=== PATIENT | male | born 2005 | race Caucasian/White ===

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

== ENCOUNTER 2023-01-16 17:30 | Outpatient (RCR) | payer OTHER, SELFPAY ==
--- NOTE | 2022-06-27 18:53 | HP.PTEVAL ---
Patient's Visit Information CLAUDE BAIN is a 17 year old M referred to Physical Therapy by MONTSERRAT BAUER with a diagnosis of Spastic Diplegia. Date of Evaluation: 06/27/22 Physical Therapist: Thomas Sweet, PT, ATC - Visit Plan Frequency: 2-3x /Week Duration: 4-6 Weeks Plan: B LE strengthening, balance and proprio, core strengthening, gait training, stair negotiation, nustep, and HEP - Subjective Pt was diagnosed with spastic diplegia approximately 5 years ago. Pt notes he was always off with his walking progression, but notes he never had a Dx until 5 years ago. Pt has been treated on and off over the years with speech, physical and occupational therapy. Pt notes he was last in here before [place] of last year, and notes since he has been off from PT, he has noticed significant regression with his LE tightness. Pt reports he likes to go outside to enjoy activites, but notes he has been sitting a lot at home secondary to weakness and fatigue. Pt has no stairs in the house, but has 3 to enter which pt has difficulty negotiating. Pt notes he has fallen a lot in the past, with the last one occurring a week ago when he fell off of the bed. - Objective Neuro: B LE sensation is WNL to light touch. Gait: Pt is able to ambulate 120 feet with ww AND slow rudy until needing to rest secondary to fatigue. Pt demonstrates a Trendelenburg gait pattern with ambulation indicating core weakness throughout. MMT: B LE's are grossly 4-/5 throughout. Transfers: Pt is I with sit to stand but is unable to transfer onto a mat table without assistance. - Balance/Special Test Scores Lower Extremity Functional Score: 25 - Goals Goal 1:: Increase B LE strength x 1/2 grade to aid with stair negotiation Goal Time Frame: 4-6 Weeks Goal 2:: Increase core stability to aid with improving pt's gait pattern and eliminating the trendelenburg gait pattern Goal Time Frame: 4-6 Weeks Goal 3:: Pt will be able to ambulate greater than 600 feet to aid with community ambulation Goal Time Frame: 4-6 Weeks Goal 4:: I with HEP Goal Time Frame: 4-6 Weeks - Rehabilitation Potential Physical Therapy Diagnosis: Pt has B LE weakness, core weakness, and intolerance for ambulation secondary to spastic diplegia Rehabilitation Potential: Good - Anticipated Interventions Patient/Client Instruction: Educate patient on: Condition, Plan of Care For the Purpose of:: To improve self management Therapeutic Exercise to Include: Strength training, Endurance training, Balance training, Gait and locomotor training, Dynamic Lumbar Stabilization For the Purpose of:: To improve muscle performance and motor function, To increase tolerance to activity/condition/position, To improve performance and independence with ADL's, To improve ability of physical actions for home/community/work/leisure Thank you for the opportunity to evaluate your patient. For Medicare and Medicare HMO plans, please review the plan of care and approve it. It will need to be FAXED BACK to us at [phone] for Medicare purposes. For Medicare only, by signing this I certify the plan of care. Please let me know if there are questions or concerns regarding this plan of care. Physician Signature: Date:
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
--- NOTE | 2023-01-16 18:29 | HP.PTDCSUM ---
Discharge Summary D/C summary: It has been my pleasure to treat CLAUDE BAIN referred by MONTSERRAT BAUER, with the diagnosis of Spastic Diplegia for a total of 29 visit(s). Discharge Date: Please see the following information for a summary of their discharge status. Subjective Subjective: Pt reports he has benefitted from PT at this time. Pt reports his mom is fighting for him to get more PT Pain R quad: Pain Intensity (Out of 10): 0 Overall Improvement % Improvement: 50 Objective Objective/Function: MMT: B LE are grossly 4-/5 throughout Gait: Pt is able to ambulate 140 feet with walker and CGAx1 until needing to rest secondary to fatigue. Pt also performs toe drag with B LE's. Pt is now I with HEP Goals Goal 1:: Increase B LE strength x 1/2 grade to aid with stair negotiation Goal Progress: Goal Met Goal 2:: Increase core stability to aid with improving pt's gait pattern and eliminating the trendelenburg gait pattern Goal Progress: Progressing Goal 3:: Pt will be able to ambulate greater than 600 feet to aid with community ambulation Goal Progress: Progressing Goal 4:: I with HEP Goal Progress: Goal Met Plan Plan: Discharge to HEP D/C Information d/c sentence: If there are questions or concerns regarding this patient's physical therapy, please feel free to call me at [phone]. Thank you for the referral of this patient. Sincerely, Thomas Sweet, PT, ATC Balance/Gait/Functional tests Balance/Special Test Scores Lower Extremity Functional Score: 25 Improvement % Improvement: 50
== END 2023-01-16 19:00 | disposition home or self-care (01) ==
LOC: PT 17:30
PROVIDERS: PCP Pediatrics
DX: G80.1 Spastic diplegic cerebral palsy (principal); G93.49 Other encephalopathy
CPT/HCPCS: 97110; 97161; 97164

== ENCOUNTER 2023-09-25 00:31 | Emergency (ER) | payer OTHER, MEDICAID, SELFPAY ==
[2023-09-25 00:37] VITALS: BP 126/77; PULSE 85; RESP 18; TEMP 36.6; O2SAT 96
--- NOTE | 2023-09-25 01:30 | EDS_ITS ---
HPI History of Present Illness Chief Complaint: Overdose Informant: patient and parent Narrative Narrative: Patient presents with family after accidental ingestion of Coumadin and aspirin. Mom had gotten both the patient as well as his brothers medications ready and sent them on the kitchen counter. Patient accidentally grabbed his brothers pills and took them which included 4 mg of Coumadin and 81 mg of aspirin. 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 Seizures Home Medications ?Medication ?Instructions ?Recorded ?Last Taken ?Type clonidine HCl 0.1 mg 0.3 mg PO QHS 04/28/18 Unknown History tablet,extended release,12 hr fluoxetine 10 mg capsule 40 mg PO DAILY 04/28/18 Unknown History ziprasidone HCl 20 mg capsule 20 mg PO BID 04/28/18 Unknown History lamotrigine 200 mg tablet 250 mg PO BID 10/04/19 Unknown History baclofen 10 mg tablet 10 mg PO BID 09/25/23 Unknown History cholecalciferol (vitamin D3) 125 5,000 unit PO DAILY 09/25/23 Unknown History mcg (5,000 unit) tablet (Vitamin D3) clobazam 10 mg tablet 10 mg PO QHS 09/25/23 Unknown History ferrous sulfate 325 mg (65 mg 325 mg PO DAILY 09/25/23 Unknown History iron) tablet (iron) pyridoxine (vitamin B6) 100 mg 100 mg PO DAILY 09/25/23 Unknown History tablet zonisamide 100 mg capsule 300 mg PO QHS 09/25/23 Unknown History Allergy/AdvReac Type Severity Reaction Status Date / Time No Known Allergies Allergy Verified 09/25/23 00:37 Social History Smoking Status: Never smoker ROS ROS ED Constitutional Constitutional ED: Denies chills or fever(s) Eyes Eyes: Denies discharge from eye(s) ENT ENT ED: Denies discharge from eye(s), rhinorrhea or sore throat Cardiovascular Cardiovascular: Denies chest pain Respiratory/Chest Respiratory/Chest: Denies cough or dyspnea Gastrointestinal Gastrointestinal: Denies abdominal pain, nausea or vomiting Genitourinary Genitourinary ED: Denies dysuria Musculoskeletal Musculoskeletal: Denies back pain or extremity pain Integumentary Denies Abrasions or rash Neurologic Neurologic: Denies headache(s) or weakness Psychiatric Psychiatric: Denies anxiety or depression Allergic/Immunologic Allergic/Immunologic ED: Denies lip swelling or urticaria EXAM Physical Exam Const Vital Signs: 09/25/23 00:37 09/25/23 01:27 09/25/23 01:50 Temperature 97.9 F 97.2 F L Temperature Source Temporal Pulse Rate 85 73 Respiratory Rate 18 15 Respiratory Effort Normal Non-Labored Respiratory Pattern Normal Blood Pressure 126/77 H 124/69 H Blood Pressure Mean 93 87 Pulse Ox 96 99 Oxygen Delivery Method Room Air Positive well nourished and well developed General Appearance ED: well developed HEENT Reports moist mucous membranes Neck no lymphadenopathy Chest Wall inspection of chest normal and palpation of chest normal Resp normal respiratory effort and clear to auscultation bilaterally Cardio regular rate and regular rhythm GI non-tender Palpation: soft Extremity normal to inspection Neuro no sensory deficits noted Sensorium / Orientation: alert Motor Exam: strength 5/5 throughout Psych mental status grossly normal Skin no rashes or lesions noted MDM MDM MDM Narrative Medical decision making narrative: Patient's home medication list is reviewed. I do not see any concern for interaction with a single dose of Coumadin or aspirin. Family is reassured. Return instructions provided. Discharge Plan Triage Chief Complaint: Overdose ED Provider: Gem Breen Dx/Rx/DC Orders Clinical Impression: Accidental drug ingestion Instructions: ED Accidental Ingestion ... Prescriptions: No Action ziprasidone HCl 20 capsule 20 mg PO BID fluoxetine 10 MG capsule 40 mg PO DAILY clonidine HCl 0.1 MG tablet extended release 12 hr 0.3 mg PO QHS Patient Comments: TAKE 2 TABS (0.2 MG) BY MOUTH 2 TIMES DAILY SWALLOW WHOLE DO NOT CRUSH, SPLIT, OR CHEW. lamotrigine 200 MG tablet 250 mg PO BID zonisamide 100 mg capsule 300 mg PO QHS Patient Comments: PLEASE SEE ATTACHED FOR DETAILED DIRECTIONS baclofen 10 mg tablet 10 mg PO BID clobazam 10 mg tablet 10 mg PO QHS ferrous sulfate [iron] 325 mg (65 mg iron) tablet 325 mg PO DAILY pyridoxine (vitamin B6) 100 mg tablet 100 mg PO DAILY cholecalciferol (vitamin D3) [Vitamin D3] 125 mcg (5,000 unit) tablet 5,000 unit PO DAILY Primary Care Provider: Bhavesh Fuller Referrals: Bhavesh Fuller MD [Primary Care Provider] - As Needed Print Language: Hebrew Disposition Disposition: Home, Self Care Discharge Date/Time: 09/25/23 01:51
[2023-09-25 01:50] VITALS: BP 124/69; PULSE 73; RESP 15; TEMP 36.2; O2SAT 99
== END 2023-09-25 01:51 | disposition home or self-care (01) ==
LOC: ED 01:44
PROVIDERS: Emergency Provider Emergency Medicine; PCP Pediatrics; Visit Provider Emergency Medicine
DX: T45.511A Poisoning by anticoagulants, accidental (unintentional), initial encounter (principal)
CPT/HCPCS: 99283